=== PATIENT | female | born 1940 | race Caucasian/White ===

== ENCOUNTER 2018-09-01 16:37 | Emergency (ER) | payer MEDICARE, OTHER ==
[~2018-09-01] VITALS: Ht 165.1 cm; Wt 54.4 kg
[2018-09-01 17:15] LABS: BASOPHILS # (AUTO) 0.1 X10'3 (0-0.2); BASOPHILS % (AUTO) 1.8 % (0-1); EOSINOPHILS % (AUTO) 0.3 % (0-6); HEMOGLOBIN 12.6 g/dl (12.0-16.0); LYMPHOCYTES # (AUTO) 0.7 X10'3 (1.1-4.8); LYMPHOCYTES % (AUTO) 10.6 % (21-51); MEAN CORPUSCULAR HEMOGLOBIN 36.4 PG (27.0-31.0); MEAN PLATELET VOLUME 7.8 FL (7.4-10.4); MONOCYTES # (AUTO) 0.7 X10'3 (0-0.9); MONOCYTES % (AUTO) 10.4 % (2-12); NEUTROPHILS # (AUTO) 5.4 X10'3 (1.8-7.7); NEUTROPHILS % (AUTO) 76.9 % (42-75); PLATELET COUNT 316 X10'3 (140-440); RED BLOOD COUNT 3.46 X10'6 (4.20-5.60); RED CELL DISTRIBUTION WIDTH 11.8 % (11.5-14.5); WHITE BLOOD COUNT 6.9 X10'3 (4.5-11.0)
[2018-09-01 17:22] LABS: ALANINE AMINOTRANSFERASE 42 U/L (12-78); ALBUMIN 3.5 G/DL (3.4-5.0); ALBUMIN/GLOBULIN RATIO 0.9 (1.1-1.5); ALKALINE PHOSPHATASE 81 IU/L (46-116); ANION GAP 12 (8-16); ASPARTATE AMINO TRANSFERASE 74 U/L (10-37); BILIRUBIN,TOTAL 0.7 MG/DL (0.1-1.0); BLOOD UREA NITROGEN 22 MG/DL (7-18); BUN/CREATININE RATIO 11.3 (6.6-38.0); CALCIUM 7.6 MG/DL (8.5-10.1); CHLORIDE 93 MMOL/L (99-107); CREATININE 1.94 MG/DL (0.40-0.90); GLUCOSE 162 MG/DL (70-104); POTASSIUM 3.5 MMOL/L (3.5-5.1); SODIUM 127 MMOL/L (135-145); TOTAL CARBON DIOXIDE 21.7 MMOL/L (24-32); TOTAL PROTEIN 7.3 G/DL (6.4-8.2); eGFR 25 ML/MIN
[2018-09-01 17:25] LABS: INR 1.1 INR; PROTHROMBIN TIME 11.1 SECONDS (9.0-12.0)
[2018-09-01 18:26] LABS: COLOR,URINE YELLOW (Yellow); GLUCOSE, URINE NEGATIVE (Neg); KETONES,URINE NEGATIVE (Neg); LEUKOCYTE ESTERASE ,URINE SMALL (Neg); NITRITES, URINE NEGATIVE (Neg); OCCULT BLOOD,URINE LARGE (Neg); PROTEIN,URINE NEGATIVE (Neg); UROBILINOGEN,URINE 0.2 E.U/dL (0.2-1.0)
[2018-09-01 18:32] LABS: UA COLLECTION TYPE CLN CATCH MIDSTREAM
[2018-09-01 18:33] LABS: BACTERIA,URINE FEW /HPF (Neg); CLARITY,URINE SLIGHTLY CLOUDY (Clear); SQUAMOUS EPITHELIAL CELL,UR MODERATE /LPF (FEW); WBC,URINE 0-4 /HPF (0-4)
[2018-09-01] MEDS ORDERED: NITR-79 PO (19:15)
[2018-09-01 19:40] VITALS: BP 170/90
== END 2018-09-01 19:45 | disposition home or self-care (01) ==
LOC: ER 16:38
DX: N39.0 Urinary tract infection, site not specified (principal); M10.9 Gout, unspecified; Z88.8 Allergy status to other drugs, medicaments and biological substances
CPT/HCPCS: 36415; 80053; 81001; 85025; 85610; 87088; 93005; 99285

== ENCOUNTER 2018-10-29 19:31 | Inpatient (IN) | payer MEDICARE, BC ==
[~2018-10-29] VITALS: Ht 165.1 cm; Wt 62.7 kg
[~2018-10-29 19:31] MED LIST: NITR-79 PO
[2018-10-29] MEDS ORDERED: ondansetron 4 MG/5 ML oral solution 5ml CUP PO ONE (20:55)
[2018-10-29] MEDS ORDERED: normal saline 1000ML IV soln IVB ONE (20:55)
[2018-10-29 21:55] LABS: BASOPHILS % (AUTO) 0.4 % (0-1); EOSINOPHILS % (AUTO) 0 % (0-6); HEMOGLOBIN 10.6 g/dl (12.0-16.0); LYMPHOCYTES # (AUTO) 1.1 X10'3 (1.1-4.8); LYMPHOCYTES % (AUTO) 11.7 % (21-51); MEAN CORPUSCULAR HEMOGLOBIN 33.7 PG (27.0-31.0); MEAN CORPUSCULAR HGB CONC 33.2 % (33.0-36.5); MEAN CORPUSCULAR VOLUME 101.5 FL (78-98); MEAN PLATELET VOLUME 7.7 FL (7.4-10.4); MONOCYTES # (AUTO) 0.7 X10'3 (0-0.9); MONOCYTES % (AUTO) 7.1 % (2-12); NEUTROPHILS # (AUTO) 7.9 X10'3 (1.8-7.7); NEUTROPHILS % (AUTO) 80.8 % (42-75); PLATELET COUNT 198 X10'3 (140-440); RED BLOOD COUNT 3.16 X10'6 (4.20-5.60); RED CELL DISTRIBUTION WIDTH 14.2 % (11.5-14.5); WHITE BLOOD COUNT 9.7 X10'3 (4.5-11.0)
[2018-10-29 22:07] LABS: CLARITY,URINE CLEAR (Clear); COLOR,URINE YELLOW (Yellow); GLUCOSE, URINE NEGATIVE (Neg); KETONES,URINE NEGATIVE (Neg); LEUKOCYTE ESTERASE ,URINE NEGATIVE (Neg); NITRITES, URINE NEGATIVE (Neg); OCCULT BLOOD,URINE NEGATIVE (Neg); PROTEIN,URINE NEGATIVE (Neg); UROBILINOGEN,URINE 0.2 E.U/dL (0.2-1.0)
[2018-10-29 22:15] LABS: ALANINE AMINOTRANSFERASE 27 U/L (12-78); ALBUMIN 3.2 G/DL (3.4-5.0); ALKALINE PHOSPHATASE 103 IU/L (46-116); ANION GAP 8 (8-16); ASPARTATE AMINO TRANSFERASE 41 U/L (10-37); BILIRUBIN,TOTAL 1.1 MG/DL (0.1-1.0); BLOOD UREA NITROGEN 21 MG/DL (7-18); BUN/CREATININE RATIO 10.8 (6.6-38.0); CHLORIDE 98 MMOL/L (99-107); CREATININE 1.95 MG/DL (0.40-0.90); GLUCOSE 101 MG/DL (70-104); POTASSIUM 3.9 MMOL/L (3.5-5.1); SODIUM 135 MMOL/L (135-145); TOTAL CARBON DIOXIDE 28.6 MMOL/L (24-32); TOTAL PROTEIN 6.4 G/DL (6.4-8.2); eGFR 25 ML/MIN
[2018-10-29] MEDS ORDERED: ondansetron/PF 4mg/2ml inj IV ONE (22:25)
[2018-10-29 22:26] LABS: CREATINE KINASE 321 U/L (26-192); MAGNESIUM 1.6 MG/DL (1.5-2.4)
[2018-10-29 22:28] LABS: INR 1.1 INR; PARTIAL THROMBOPLASTIN TIME 29 SECONDS (22-32); PROTHROMBIN TIME 10.7 SECONDS (9.0-12.0)
[2018-10-29 22:30] LABS: UA COLLECTION TYPE VOIDED
[2018-10-29] MEDS ORDERED: TRAM50TA2 PO (23:13)
[2018-10-29] MEDS ORDERED: ROPI0.2540 PO (23:13)
[2018-10-29] MEDS ORDERED: POTA10TA15 PO (23:13)
[2018-10-29] MEDS ORDERED: FEBU40TA PO (23:13)
[2018-10-29] MEDS ORDERED: COLC0.6T69 PO (23:13)
[2018-10-30] MEDS ORDERED: bisacodyl 10mg suppository rectal RC PRN (00:15)
[2018-10-30] MEDS ORDERED: acetaminophen 650mg rectal suppository RC PRN (00:15)
[2018-10-30] MEDS ORDERED: ondansetron/PF 4mg/2ml inj IV PRN (00:15)
[2018-10-30] MEDS ORDERED: magnesium hydroxide 30ml (MOM) UD suspension PO PRN (00:15)
[2018-10-30] MEDS ORDERED: HYDROmorphone 1 mg/ml syringe IV PRN (00:15)
[2018-10-30] MEDS ORDERED: mag hydrox/Alum hydrox/simeth 30ml oral suspension PO PRN (00:15)
[2018-10-30] MEDS ORDERED: metoclopramide 5 mg/ml inj IV PRN (00:15)
[2018-10-30] MEDS ORDERED: diphenhydrAMINE 25mg capsule PO PRN (00:15)
[2018-10-30] MEDS ORDERED: acetaminophen 325mg tablet PO PRN (00:15)
[2018-10-30] MEDS ORDERED: morphine 2 MG/ML inj. syringe IV PRN (00:15)
[2018-10-30] MEDS ORDERED: HYDROcodone/acetaminophen 5mg/325mg tablet PO PRN (00:15)
[2018-10-30] MEDS ORDERED: diphenhydrAMINE 50 mg/ml inj IV PRN (00:15)
[2018-10-30] MEDS: normal saline 1000ml 1,000 ML IV SCH ×3 (01:14→20:15)
[2018-10-30] MEDS: traMADol 50MG tablet PO PRN ×2 (01:30→20:37)
[2018-10-30 05:45] LABS: HEMOGLOBIN A1C 5.7 % (4.5-6.2)
[2018-10-30] MEDS ORDERED: colchicine 0.6mg tablet PO PRN (08:00)
[2018-10-30] MEDS: Febuxostat (Uloric) 40MG TAB PO SCH (08:00)
[2018-10-30 10:06] LABS: LIPASE 64 U/L (73-393)
[2018-10-30] MEDS: docusate sod 100mg capsule PO SCH ×2 (11:24→20:28)
[2018-10-30 11:30] VITALS: BP 125/47
[2018-10-30 20:00] VITALS: BP 127/63
[2018-10-30] MEDS: ROPINIRole 0.25mg tablet PO SCH (20:27)
[2018-10-30] MEDS: thiamine 100mg tablet PO SCH (20:27)
[2018-10-30] MEDS: famotidine 20mg tablet PO SCH (20:27)
[2018-10-30] MEDS ORDERED: temazepam 15mg capsule PO PRN (21:00)
[2018-10-31] VITALS: BP 121/80
[2018-10-31] MEDS: normal saline 1000ml 1,000 ML IV SCH ×3 (00:11→23:26)
[2018-10-31 06:03] LABS: BASOPHILS % (AUTO) 0 % (0-1); EOSINOPHILS # (AUTO) 0.1 X10'3 (0-0.9); EOSINOPHILS % (AUTO) 0.9 % (0-6); HEMATOCRIT 31.8 % (35.0-45.0); HEMOGLOBIN 10.6 g/dl (12.0-16.0); LYMPHOCYTES # (AUTO) 0.7 X10'3 (1.1-4.8); LYMPHOCYTES % (AUTO) 6.9 % (21-51); MEAN CORPUSCULAR HGB CONC 33.3 % (33.0-36.5); MEAN CORPUSCULAR VOLUME 102.2 FL (78-98); MEAN PLATELET VOLUME 8.1 FL (7.4-10.4); MONOCYTES # (AUTO) 0.7 X10'3 (0-0.9); MONOCYTES % (AUTO) 6.9 % (2-12); NEUTROPHILS # (AUTO) 8.8 X10'3 (1.8-7.7); NEUTROPHILS % (AUTO) 85.3 % (42-75); PLATELET COUNT 167 X10'3 (140-440); RED BLOOD COUNT 3.12 X10'6 (4.20-5.60); RED CELL DISTRIBUTION WIDTH 13.9 % (11.5-14.5); WHITE BLOOD COUNT 10.4 X10'3 (4.5-11.0)
[2018-10-31 06:09] LABS: ALANINE AMINOTRANSFERASE 33 U/L (12-78); ALBUMIN/GLOBULIN RATIO 0.9 (1.1-1.5); ALKALINE PHOSPHATASE 107 IU/L (46-116); ANION GAP 10 (8-16); ASPARTATE AMINO TRANSFERASE 59 U/L (10-37); BILIRUBIN,TOTAL 1.2 MG/DL (0.1-1.0); BLOOD UREA NITROGEN 29 MG/DL (7-18); CALCIUM 7.7 MG/DL (8.5-10.1); CHLORIDE 103 MMOL/L (99-107); CHOL/HDL RATIO 2.1 (0.00-4.99); CHOLESTEROL 161 MG/DL (0-200); CREATININE 1.93 MG/DL (0.40-0.90); GLUCOSE 133 MG/DL (70-104); HDL CHOLESTEROL 78 MG/DL (35-60); LDL CHOLESTEROL 77 MG/DL (50-100); POTASSIUM 3.9 MMOL/L (3.5-5.1); SODIUM 138 MMOL/L (135-145); TOTAL CARBON DIOXIDE 24.7 MMOL/L (24-32); TOTAL PROTEIN 6.2 G/DL (6.4-8.2); TRIGLYCERIDES 43 MG/DL (20-135); eGFR 25 ML/MIN
[2018-10-31 07:24] VITALS: BP 130/71
[2018-10-31] MEDS: Febuxostat (Uloric) 40MG TAB PO SCH (08:00)
[2018-10-31] MEDS: folic acid 1mg tablet PO SCH (08:04)
[2018-10-31] MEDS: thiamine 100mg tablet PO SCH ×2 (08:04→19:24)
[2018-10-31] MEDS: docusate sod 100mg capsule PO SCH ×2 (08:04→19:24)
[2018-10-31 11:30] VITALS: BP 115/61
[2018-10-31 11:38] LABS: CREATINE KINASE 322 U/L (26-192)
[2018-10-31 13:54] LABS: OCCULT BLOOD STOOL POSITIVE (Neg)
[2018-10-31] MEDS ORDERED: potassium Cl 20 mEq SR tablet PO PRN ×2 (18:55)
[2018-10-31] MEDS ORDERED: magnesium 4gm in 100ml NS 100 ML IV PRN (18:55)
[2018-10-31] MEDS ORDERED: magnesium Cl slow-release 64mg tablet PO PRN (18:55)
[2018-10-31] MEDS ORDERED: potassium Cl 40MEQ/NS 500ml 500 ML IV PRN ×2 (18:55)
[2018-10-31] MEDS ORDERED: PEG 3350/Na sulf,bicarb,Cl/KCl oral sol 4 liter bottle PO ONE (19:00)
[2018-10-31] MEDS ORDERED: meclizine 12.5mg tablet PO PRN (19:05)
[2018-10-31] MEDS: acyclovir 200 MG capsule PO SCH ×2 (19:24→23:23)
[2018-10-31] MEDS: acetaminophen 325mg tablet PO PRN (19:24)
[2018-10-31 20:00] VITALS: BP 121/62
[2018-10-31] MEDS: ROPINIRole 0.25mg tablet PO SCH (21:40)
[2018-10-31] MEDS: famotidine 20mg tablet PO SCH (21:41)
[2018-11-01] VITALS (9 sets, daily range): BP systolic 108–156; BP diastolic 53–96
[2018-11-01] MEDS: acetaminophen 325mg tablet PO PRN (02:07)
[2018-11-01 05:41] LABS: ALANINE AMINOTRANSFERASE 38 U/L (12-78); ALBUMIN 2.6 G/DL (3.4-5.0); ALBUMIN/GLOBULIN RATIO 0.9 (1.1-1.5); ALKALINE PHOSPHATASE 95 IU/L (46-116); ANION GAP 12 (8-16); ASPARTATE AMINO TRANSFERASE 63 U/L (10-37); BILIRUBIN,TOTAL 0.9 MG/DL (0.1-1.0); BLOOD UREA NITROGEN 25 MG/DL (7-18); BUN/CREATININE RATIO 16.7 (6.6-38.0); CALCIUM 7.3 MG/DL (8.5-10.1); CHLORIDE 108 MMOL/L (99-107); GLUCOSE 98 MG/DL (70-104); MAGNESIUM 1.8 MG/DL (1.5-2.4); PHOSPHORUS 2.4 MG/DL (2.3-4.5); POTASSIUM 3.4 MMOL/L (3.5-5.1); SODIUM 143 MMOL/L (135-145); TOTAL CARBON DIOXIDE 22.6 MMOL/L (24-32); TOTAL PROTEIN 5.6 G/DL (6.4-8.2); eGFR 34 ML/MIN
[2018-11-01 05:44] LABS: HEMATOCRIT 27.9 % (35.0-45.0); HEMOGLOBIN 9.8 g/dl (12.0-16.0); RED BLOOD COUNT 2.74 X10'6 (4.20-5.60)
[2018-11-01 05:45] LABS: BASOPHILS % (AUTO) 0.1 % (0-1); EOSINOPHILS % (AUTO) 0.1 % (0-6); LYMPHOCYTES # (AUTO) 1.5 X10'3 (1.1-4.8); LYMPHOCYTES % (AUTO) 15.1 % (21-51); MEAN CORPUSCULAR HEMOGLOBIN 35.7 PG (27.0-31.0); MEAN CORPUSCULAR HGB CONC 35.1 % (33.0-36.5); MEAN CORPUSCULAR VOLUME 101.7 FL (78-98); MEAN PLATELET VOLUME 8.2 FL (7.4-10.4); MONOCYTES # (AUTO) 0.9 X10'3 (0-0.9); MONOCYTES % (AUTO) 8.5 % (2-12); NEUTROPHILS # (AUTO) 7.6 X10'3 (1.8-7.7); NEUTROPHILS % (AUTO) 76.2 % (42-75); PLATELET COUNT 140 X10'3 (140-440); RED CELL DISTRIBUTION WIDTH 14.3 % (11.5-14.5)
[2018-11-01] MEDS: Febuxostat (Uloric) 40MG TAB PO SCH (08:00)
[2018-11-01] MEDS: folic acid 1mg tablet PO SCH (08:15)
[2018-11-01] MEDS: acyclovir 200 MG capsule PO SCH ×5 (08:15→22:08)
[2018-11-01] MEDS: docusate sod 100mg capsule PO SCH ×2 (08:15→20:00)
[2018-11-01] MEDS: thiamine 100mg tablet PO SCH ×2 (08:15→20:00)
[2018-11-01 09:23] LABS: ANISOCYTOSIS 1+; PLATELET ESTIMATE DECREASED
[2018-11-01] MEDS ORDERED: magnesium 2GM in 50ml NS 50 ML IV PRN (11:35)
[2018-11-01] MEDS ORDERED: magnesium Cl slow-release 64mg tablet PO PRN (11:35)
[2018-11-01] MEDS ORDERED: potassium Cl 20 mEq SR tablet PO PRN (11:35)
[2018-11-01] MEDS ORDERED: potassium Cl 40MEQ/NS 500ml 500 ML IV PRN ×2 (11:35)
[2018-11-01] MEDS ORDERED: magnesium 4gm in 100ml NS 100 ML IV PRN (11:35)
[2018-11-01] MEDS: potassium Cl 20 mEq SR tablet PO PRN ×2 (11:40→16:24)
[2018-11-01] MEDS: normal saline 1000ml 1,000 ML IV SCH ×2 (12:15→18:53)
[2018-11-01] MEDS ORDERED: fentaNYL/PF 50MCG/1 ML 2ML syringe ONE ×2 (16:56→20:59)
[2018-11-01] MEDS ORDERED: MIDAZolam 5mg/5ml vial ONE (16:56)
[2018-11-01] MEDS ORDERED: LIDOcaine Viscous 15ml cup ONE (16:56)
[2018-11-01] MEDS: carVEDilol 12.5mg tablet PO SCH (20:00)
[2018-11-01] MEDS: famotidine 20mg tablet PO SCH (21:00)
[2018-11-01] MEDS: ROPINIRole 0.25mg tablet PO SCH (21:00)
[2018-11-02] VITALS: BP 137/67
[2018-11-02 06:02] LABS: ALANINE AMINOTRANSFERASE 35 U/L (12-78); ALBUMIN 2.8 G/DL (3.4-5.0); ALBUMIN/GLOBULIN RATIO 0.9 (1.1-1.5); ALKALINE PHOSPHATASE 83 IU/L (46-116); ANION GAP 15 (8-16); ASPARTATE AMINO TRANSFERASE 56 U/L (10-37); BILIRUBIN,TOTAL 0.7 MG/DL (0.1-1.0); BLOOD UREA NITROGEN 18 MG/DL (7-18); BUN/CREATININE RATIO 15.7 (6.6-38.0); CHLORIDE 110 MMOL/L (99-107); CREATININE 1.15 MG/DL (0.40-0.90); GLUCOSE 70 MG/DL (70-104); MAGNESIUM 1.7 MG/DL (1.5-2.4); PHOSPHORUS 2.2 MG/DL (2.3-4.5); POTASSIUM 3.8 MMOL/L (3.5-5.1); SODIUM 144 MMOL/L (135-145); TOTAL CARBON DIOXIDE 19.2 MMOL/L (24-32); TOTAL PROTEIN 5.8 G/DL (6.4-8.2); eGFR 46 ML/MIN
[2018-11-02 06:20] LABS: RPR Non Reactive (Non Reactive)
[2018-11-02 07:00] VITALS: BP 142/69
[2018-11-02] MEDS: acyclovir 200 MG capsule PO SCH ×5 (07:12→23:12)
[2018-11-02] MEDS: thiamine 100mg tablet PO SCH ×2 (07:12→19:20)
[2018-11-02] MEDS: carVEDilol 12.5mg tablet PO SCH ×2 (07:12→19:19)
[2018-11-02] MEDS: folic acid 1mg tablet PO SCH (07:12)
[2018-11-02] MEDS: normal saline 1000ml 1,000 ML IV SCH ×2 (07:21→16:45)
[2018-11-02] MEDS: Febuxostat (Uloric) 40MG TAB PO SCH (08:00)
[2018-11-02] MEDS: docusate sod 100mg capsule PO SCH ×2 (08:00→19:19)
[2018-11-02 09:50] LABS: BASOPHILS % (AUTO) 0 % (0-1); EOSINOPHILS # (AUTO) 0.1 X10'3 (0-0.9); EOSINOPHILS % (AUTO) 0.8 % (0-6); HEMATOCRIT 28.4 % (35.0-45.0); HEMOGLOBIN 9.3 g/dl (12.0-16.0); LYMPHOCYTES % (AUTO) 10.6 % (21-51); MEAN CORPUSCULAR HGB CONC 32.7 % (33.0-36.5); MONOCYTES # (AUTO) 0.6 X10'3 (0-0.9); MONOCYTES % (AUTO) 5.8 % (2-12); NEUTROPHILS # (AUTO) 8.1 X10'3 (1.8-7.7); NEUTROPHILS % (AUTO) 82.8 % (42-75); RED BLOOD COUNT 2.74 X10'6 (4.20-5.60); RED CELL DISTRIBUTION WIDTH 15.4 % (11.5-14.5); WHITE BLOOD COUNT 9.8 X10'3 (4.5-11.0)
[2018-11-02 09:51] LABS: MEAN PLATELET VOLUME 7.1 FL (7.4-10.4); PLATELET COUNT 155 X10'3 (140-440)
[2018-11-02 12:05] VITALS: BP 111/63
[2018-11-02 18:00] VITALS: BP 137/76
[2018-11-02] MEDS: ROPINIRole 0.25mg tablet PO SCH (19:19)
[2018-11-02] MEDS: famotidine 20mg tablet PO SCH (19:20)
[2018-11-02] MEDS: traMADol 50MG tablet PO PRN (19:20)
[2018-11-03] VITALS (23 sets, daily range): BP systolic 122–163; BP diastolic 64–91
[2018-11-03] MEDS: traMADol 50MG tablet PO PRN (03:22)
[2018-11-03 05:33] LABS: BASOPHILS % (AUTO) 0.1 % (0-1); EOSINOPHILS % (AUTO) 0.1 % (0-6); HEMATOCRIT 25.8 % (35.0-45.0); HEMOGLOBIN 8.5 g/dl (12.0-16.0); LYMPHOCYTES # (AUTO) 1.5 X10'3 (1.1-4.8); LYMPHOCYTES % (AUTO) 21.7 % (21-51); MEAN CORPUSCULAR HEMOGLOBIN 34.3 PG (27.0-31.0); MEAN CORPUSCULAR VOLUME 103.7 FL (78-98); MEAN PLATELET VOLUME 7.8 FL (7.4-10.4); MONOCYTES # (AUTO) 0.6 X10'3 (0-0.9); MONOCYTES % (AUTO) 8.3 % (2-12); NEUTROPHILS # (AUTO) 4.7 X10'3 (1.8-7.7); NEUTROPHILS % (AUTO) 69.8 % (42-75); PLATELET COUNT 140 X10'3 (140-440); RED BLOOD COUNT 2.49 X10'6 (4.20-5.60); RED CELL DISTRIBUTION WIDTH 16.5 % (11.5-14.5); WHITE BLOOD COUNT 6.7 X10'3 (4.5-11.0)
[2018-11-03 05:48] LABS: ALANINE AMINOTRANSFERASE 28 U/L (12-78); ALBUMIN 2.4 G/DL (3.4-5.0); ALBUMIN/GLOBULIN RATIO 0.8 (1.1-1.5); ALKALINE PHOSPHATASE 87 IU/L (46-116); ANION GAP 12 (8-16); ASPARTATE AMINO TRANSFERASE 41 U/L (10-37); BILIRUBIN,TOTAL 0.7 MG/DL (0.1-1.0); BLOOD UREA NITROGEN 20 MG/DL (7-18); BUN/CREATININE RATIO 15.7 (6.6-38.0); CHLORIDE 111 MMOL/L (99-107); CREATININE 1.27 MG/DL (0.40-0.90); GLUCOSE 90 MG/DL (70-104); MAGNESIUM 1.6 MG/DL (1.5-2.4); PHOSPHORUS 2.5 MG/DL (2.3-4.5); POTASSIUM 3.8 MMOL/L (3.5-5.1); SODIUM 142 MMOL/L (135-145); TOTAL CARBON DIOXIDE 19.2 MMOL/L (24-32); TOTAL PROTEIN 5.3 G/DL (6.4-8.2); eGFR 41 ML/MIN
[2018-11-03] MEDS: Febuxostat (Uloric) 40MG TAB PO SCH (08:00)
[2018-11-03] MEDS: folic acid 1mg tablet PO SCH (08:39)
[2018-11-03] MEDS: thiamine 100mg tablet PO SCH (08:39)
[2018-11-03] MEDS: carVEDilol 12.5mg tablet PO SCH (08:39)
[2018-11-03] MEDS: docusate sod 100mg capsule PO SCH (08:39)
[2018-11-03] MEDS: acyclovir 200 MG capsule PO SCH ×3 (08:39→14:28)
[2018-11-03 10:53] LABS: URINE AMPHETAMINE SCREEN NEGATIVE (Neg); URINE BARBITUATE SCREEN NEGATIVE (Neg); URINE BENZODIAZEPINES SCREEN POSITIVE (Neg); URINE CANNABINOID SCREEN NEGATIVE (Neg); URINE COCAINE SCREEN NEGATIVE (Neg); URINE METHADONE SCREEN NEGATIVE (Neg); URINE OPIATE SCREEN NEGATIVE (Neg); URINE PHENCYCLIDINE SCREEN NEGATIVE (Neg)
[2018-11-03] MEDS ORDERED: FOLI1TAB16 PO (12:11)
[2018-11-03] MEDS ORDERED: THI100T PO (12:11)
[2018-11-03] MEDS ORDERED: FAMO20TA8 PO (12:11)
[2018-11-03] MEDS ORDERED: CARV-50 PO (12:11)
[2018-11-03] MEDS ORDERED: MECL12.584 PO (12:11)
[2018-11-03] MEDS ORDERED: ACYC200C PO (12:11)
[2018-11-03] MEDS ORDERED: FERR325T28 PO (15:54)
== END 2018-11-03 15:15 | disposition home health service (06) | DRG 378 ==
LOC: ER 19:32 → ED HOLD 10-30 00:15 → SUR 3N 10-30 10:30
PROVIDERS: ADMIT Family Medicine; ATTEND Family Medicine
PROC: 0D748ZZ Dilation of Esophagogastric Junction, Via Natural or Artificial Opening Endoscopic (ICD-10-PCS; 2018-11-01)
PROC: 0DBM8ZX Excision of Descending Colon, Via Natural or Artificial Opening Endoscopic, Diagnostic (ICD-10-PCS; 2018-11-01)
PROC: 4A02XFZ Measurement of Cardiac Rhythm, External Approach (ICD-10-PCS; principal; 2018-11-03)
PROC: 4A03XB1 Measurement of Arterial Pressure, Peripheral, External Approach (ICD-10-PCS; 2018-11-03)
DX: K92.2 Gastrointestinal hemorrhage, unspecified (principal); N17.9 Acute kidney failure, unspecified; K63.3 Ulcer of intestine; K55.9 Vascular disorder of intestine, unspecified; M47.812 Spondylosis without myelopathy or radiculopathy, cervical region; E86.1 Hypovolemia; N18.3 Chronic kidney disease, stage 3 (moderate); B02.9 Zoster without complications; D50.0 Iron deficiency anemia secondary to blood loss (chronic); E86.0 Dehydration; E87.6 Hypokalemia; H81.10 Benign paroxysmal vertigo, unspecified ear; I12.9 Hypertensive chronic kidney disease with stage 1 through stage 4 chronic kidney disease, or unspecified chronic kidney disease; D63.8 Anemia in other chronic diseases classified elsewhere; Z60.2 Problems related to living alone; R13.14 Dysphagia, pharyngoesophageal phase; W18.30XA Fall on same level, unspecified, initial encounter; K22.2 Esophageal obstruction; L30.9 Dermatitis, unspecified; M1A.9XX0 Chronic gout, unspecified, without tophus (tophi); M48.04 Spinal stenosis, thoracic region; M50.323 Other cervical disc degeneration at C6-C7 level; R29.6 Repeated falls; G89.29 Other chronic pain; Z88.8 Allergy status to other drugs, medicaments and biological substances; Z79.899 Other long term (current) drug therapy; Y93.89 Activity, other specified; Y92.89 Other specified places as the place of occurrence of the external cause; Y99.8 Other external cause status
CPT/HCPCS: 36415; 45380; 70450; 70551; 71045; 72070; 72141; 80053; 80061; 80305; 80320; 81003; 82140; 82272; 82550; 82607; 83036; 83690; 83735; 83880; 84100; 84443; 84484; 85025; 85610; 85730; 86592; 87070; 88305; 93005; 93306; 93660; 93880; 96374; 99152; 99153; 99285; A4620; G0378; J2250; J2270; J2405; J3010; J7030; Q0163

== ENCOUNTER 2019-09-19 16:35 | Emergency (ER) | payer MEDICARE, BC ==
[~2019-09-19] VITALS: Ht 160 cm; Wt 56.4 kg
[~2019-09-19 16:35] MED LIST changes: +ACYC200C PO; +CARV-50 PO; +COLC0.6T69 PO; +FAMO20TA8 PO; +FEBU40TA PO; +FOLI1TAB16 PO; +LIDOcaine 1% W/epiNEPHrine 1:100,000 20ml vial ONE; +MECL12.584 PO; -NITR-79 PO; +POTA10TA15 PO; +ROPI0.2540 PO; +THI100T PO; +TRAM50TA2 PO
[2019-09-19] MEDS ORDERED: normal saline 1000ML IV soln IVB ONE (16:50)
[2019-09-19 17:23] LABS: BASOPHILS % (AUTO) 0.4 % (0-1); EOSINOPHILS % (AUTO) 0.6 % (0-6); HEMATOCRIT 30.1 % (35.0-45.0); HEMOGLOBIN 9.9 g/dl (12.0-16.0); LYMPHOCYTES # (AUTO) 0.7 X10'3 (1.1-4.8); MEAN CORPUSCULAR HEMOGLOBIN 33.7 PG (27.0-31.0); MEAN CORPUSCULAR VOLUME 102.2 FL (78-98); MEAN PLATELET VOLUME 7.4 FL (7.4-10.4); MONOCYTES # (AUTO) 0.5 X10'3 (0-0.9); MONOCYTES % (AUTO) 9.8 % (2-12); NEUTROPHILS # (AUTO) 3.9 X10'3 (1.8-7.7); NEUTROPHILS % (AUTO) 76.2 % (42-75); PLATELET COUNT 131 X10'3 (140-440); RED BLOOD COUNT 2.95 X10'6 (4.20-5.60); RED CELL DISTRIBUTION WIDTH 15.1 % (11.5-14.5); WHITE BLOOD COUNT 5.1 X10'3 (4.5-11.0)
[2019-09-19 17:31] LABS: ALANINE AMINOTRANSFERASE 12 U/L (12-78); ALBUMIN 3.4 G/DL (3.4-5.0); ALBUMIN/GLOBULIN RATIO 1.1 (1.1-1.5); ALKALINE PHOSPHATASE 38 IU/L (46-116); ANION GAP 19 (8-16); ASPARTATE AMINO TRANSFERASE 20 U/L (10-37); BILIRUBIN,TOTAL 0.2 MG/DL (0.1-1.0); BLOOD UREA NITROGEN 34 MG/DL (7-18); BUN/CREATININE RATIO 18.1 (6.6-38.0); CHLORIDE 111 MMOL/L (99-107); CREATININE 1.88 MG/DL (0.40-0.90); ETHANOL < 0.010 GM/DL (0.0-0.010); GLUCOSE 132 MG/DL (70-104); SODIUM 140 MMOL/L (135-145); TOTAL PROTEIN 6.4 G/DL (6.4-8.2); eGFR 26 ML/MIN
[2019-09-19 17:34] LABS: TOTAL CARBON DIOXIDE 10.5 MMOL/L (24-32)
[2019-09-19] MEDS ORDERED: potassium Cl 20 mEq SR tablet PO STA (17:41)
[2019-09-19 18:31] VITALS: BP 154/65
== END 2019-09-19 18:33 | disposition home or self-care (01) ==
LOC: ER 16:35
DX: S01.01XA Laceration without foreign body of scalp, initial encounter (principal); E86.0 Dehydration; R42 Dizziness and giddiness; G89.29 Other chronic pain; Z98.890 Other specified postprocedural states; Z88.8 Allergy status to other drugs, medicaments and biological substances; Z88.1 Allergy status to other antibiotic agents; Z79.899 Other long term (current) drug therapy; W18.39XA Other fall on same level, initial encounter; Y93.89 Activity, other specified; Y92.89 Other specified places as the place of occurrence of the external cause; Y99.8 Other external cause status
CPT/HCPCS: 12001; 36415; 70450; 80053; 80320; 85025; 93005; 96360; 99284; J7030

== ENCOUNTER 2020-06-04 08:03 | Inpatient (IN) | payer MEDICARE, BC ==
[~2020-06-04] VITALS: Ht 157.5 cm; Wt 66.8 kg
[~2020-06-04 08:03] MED LIST changes: -ACYC200C PO; -CARV-50 PO; -COLC0.6T69 PO; -FAMO20TA8 PO; -FEBU40TA PO; -FOLI1TAB16 PO; -LIDOcaine 1% W/epiNEPHrine 1:100,000 20ml vial ONE; -MECL12.584 PO; -POTA10TA15 PO; -ROPI0.2540 PO; +SERT100T10 PO; -THI100T PO; +TRAZ-251 PO
[2020-06-04 09:23] LABS: BASOPHILS # (AUTO) 0.1 X10'3 (0-0.2); BASOPHILS % (AUTO) 0.4 % (0-1); EOSINOPHILS % (AUTO) 0.1 % (0-6); HEMATOCRIT 24.8 % (35.0-45.0); LYMPHOCYTES # (AUTO) 0.3 X10'3 (1.1-4.8); MEAN CORPUSCULAR HEMOGLOBIN 33.9 PG (27.0-31.0); MEAN CORPUSCULAR HGB CONC 32.2 g/dL (33.0-36.5); MEAN CORPUSCULAR VOLUME 105.5 FL (78-98); MEAN PLATELET VOLUME 7.8 FL (7.4-10.4); MONOCYTES # (AUTO) 0.7 X10'3 (0-0.9); MONOCYTES % (AUTO) 5.3 % (2-12); NEUTROPHILS # (AUTO) 11.4 X10'3 (1.8-7.7); NEUTROPHILS % (AUTO) 92.2 % (42-75); PLATELET COUNT 158 X10'3 (140-440); RED BLOOD COUNT 2.35 X10'6 (4.20-5.60); RED CELL DISTRIBUTION WIDTH 16.7 % (11.5-14.5); WHITE BLOOD COUNT 12.4 X10'3 (4.5-11.0)
[2020-06-04 09:24] LABS: CLARITY,URINE CLEAR (Clear); COLOR,URINE YELLOW (Yellow); GLUCOSE, URINE NEGATIVE (Neg); KETONES,URINE 40 mg/dl (Neg); LEUKOCYTE ESTERASE ,URINE NEGATIVE (Neg); NITRITES, URINE NEGATIVE (Neg); OCCULT BLOOD,URINE SMALL (Neg); PROTEIN,URINE 30 mg/dl (Neg); UA COLLECTION TYPE STRAIGHT CATH; UROBILINOGEN,URINE 0.2 E.U/dL (0.2-1.0)
[2020-06-04 09:28] LABS: PARTIAL THROMBOPLASTIN TIME 30 SECONDS (22-32)
[2020-06-04 09:30] LABS: SQUAMOUS EPITHELIAL CELL,UR MODERATE /LPF (FEW); URINE AMPHETAMINE SCREEN NEGATIVE (Neg); URINE BARBITUATE SCREEN NEGATIVE (Neg); URINE BENZODIAZEPINES SCREEN NEGATIVE (Neg); URINE CANNABINOID SCREEN NEGATIVE (Neg); URINE COCAINE SCREEN NEGATIVE (Neg); URINE METHADONE SCREEN NEGATIVE (Neg); URINE OPIATE SCREEN NEGATIVE (Neg); URINE PHENCYCLIDINE SCREEN NEGATIVE (Neg)
[2020-06-04 09:31] LABS: BACTERIA,URINE FEW /HPF (Neg); RBC,URINE 0-2 /HPF (0-2); WBC,URINE 0-4 /HPF (0-4)
[2020-06-04 09:32] LABS: AMORPHOUS URATES 2+
[2020-06-04 09:34] LABS: ACETAMINOPHEN < 2.0 UG/ML (10-30); ALANINE AMINOTRANSFERASE 32 U/L (12-78); ALBUMIN 2.9 G/DL (3.4-5.0); ALBUMIN/GLOBULIN RATIO 0.9 (1.1-1.5); ALKALINE PHOSPHATASE 76 IU/L (46-116); ANION GAP 18 (8-16); ASPARTATE AMINO TRANSFERASE 60 U/L (10-37); BILIRUBIN,TOTAL 0.8 MG/DL (0.1-1.0); BLOOD UREA NITROGEN 18 MG/DL (7-18); BUN/CREATININE RATIO 10.9 (6.6-38.0); CALCIUM 6.7 MG/DL (8.5-10.1); CHLORIDE 107 MMOL/L (99-107); CREATININE 1.65 MG/DL (0.40-0.90); ETHANOL < 0.010 GM/DL (0.0-0.010); GLUCOSE 96 MG/DL (70-104); POTASSIUM 4.3 MMOL/L (3.5-5.1); SODIUM 140 MMOL/L (135-145); TOTAL CARBON DIOXIDE 15.1 MMOL/L (24-32); TOTAL PROTEIN 6.1 G/DL (6.4-8.2); TROPONIN I 0.09 NG/ML (0.0-0.05); eGFR 30 ML/MIN
[2020-06-04] MEDS ORDERED: diphenhydrAMINE 50 mg/ml inj IV ONE (09:50)
--- NOTE | 2020-06-04 09:58 | NUR ---
Spoke to poison control regarding possible sertaline and tramadol ingestion. Poison control states to monitor pt at least 6 hours, or until pt is back to baseline mentation, watch for SLASH TRIMMER or respiratory depression, seizure activity, or QT prolongation. Repeat ASA level, CMP, and LFT. If LFT rise, treat pt with Magnesium. Otherwise symptomatic, and supportive treatment using benzodiazepine medications as needed.
[2020-06-04] MEDS ORDERED: LORazepam 2 mg/ml vial IV ONE ×3 (10:20→20:25)
[2020-06-04] MEDS ORDERED: dextrose 50%-water 50ml dispensing syringe IV ONE (10:23)
--- NOTE | 2020-06-04 10:24 | NUR ---
Notified of BG 63; who requests administering 1 Amp D50 at this time.
--- NOTE | 2020-06-04 11:13 | NUR ---
2-hour lactic drawn at this time.
[2020-06-04] MEDS ORDERED: metroNIDAZOLE-Flagyl 500mg/NS 100 ML IV STA (12:28)
[2020-06-04] MEDS ORDERED: sodium bicarbonate (8.4%) inj. 150 MEQ in dextrose 5%-water 1,000 ML IV SCH (12:28)
[2020-06-04] MEDS ORDERED: sodium bicarbonate (0.9mEq/ml) 44.6 mEq/50ml syringe IV ONE (12:30)
[2020-06-04] MEDS ORDERED: CefTRIAXone 2gm/D5W 50ml 50 ML IV ONE (12:30)
[2020-06-04] MEDS ORDERED: CefTRIAXone inj 2,000 MG in normal saline 100ml IV soln 100 ML IV ONE (12:46)
[2020-06-04 12:50] LABS: ABG HCO3 12.2 mmol/L (22.0-26.0); ABG OXYGEN SATURATION 97.3 % (94-97); ABG PCO2 (T) 29.6 mmHg (32.0-45.0); ABG PO2 (T) 112.2 mmHg (75.0-100.0); ALLEN'S TEST POSITIVE; FCOHb 0.3 % (0.0-3.9); FLOW 2 L/min; FMetHb 0.1 % (0.0-1.5); FO2Hb 96.9 % (94-97); TOTAL HEMOGLOBIN 7.9 G/dl (12.0-16.0)
[2020-06-04] MEDS ORDERED: CEFD300C17 PO (13:13)
[2020-06-04] MEDS ORDERED: sodium bicarbonate (8.4%) inj. 150 MEQ in sodium chloride 0.45% 850 ML IV SCH (14:06)
[2020-06-04] MEDS ORDERED: metoclopramide 5 mg/ml inj IV PRN (14:10)
[2020-06-04] MEDS ORDERED: ondansetron/PF 4mg/2ml inj IV PRN (14:10)
[2020-06-04] MEDS ORDERED: acetaminophen 650mg rectal suppository RC PRN (14:10)
[2020-06-04] MEDS ORDERED: potassium Cl 20 mEq SR tablet PO PRN ×2 (14:10)
[2020-06-04] MEDS ORDERED: magnesium hydroxide 30ml (MOM) UD suspension PO PRN (14:10)
[2020-06-04] MEDS ORDERED: acetaminophen 325mg tablet PO PRN (14:10)
[2020-06-04] MEDS ORDERED: magnesium Cl slow-release 64mg tablet PO PRN (14:10)
[2020-06-04] MEDS ORDERED: bisacodyl 10mg suppository rectal RC PRN (14:10)
[2020-06-04] MEDS ORDERED: magnesium 4gm in 100ml NS 100 ML IV PRN (14:10)
[2020-06-04] MEDS ORDERED: potassium CL 10mEq/100ml bag 100 ML IV PRN (14:10)
[2020-06-04] MEDS ORDERED: mag hydrox/Alum hydrox/simeth 30ml oral suspension PO PRN (14:10)
[2020-06-04] MEDS ORDERED: magnesium 2GM in 50ml NS 50 ML IV PRN (14:10)
[2020-06-04] MEDS: sodium bicarbonate (8.4%) inj. 150 MEQ in sodium chloride 0.45% 1,000 ML IV SCH (14:31)
[2020-06-04] MEDS: piperacillin/tazo 3.375gm/50ml 50 ML IV SCH (16:00)
[2020-06-04] MEDS: vancomycin/NS 1 GM ADD-VANTAGE 250 ML IV SCH (16:30)
--- NOTE | 2020-06-04 16:52 | NUR ---
PT started thrashing around and fighting staff, unable to reorient the patient. Phoned Dr. Dimas and received a one time dose for Ativan 1 mg IV.
--- NOTE | 2020-06-04 17:08 | NUR ---
Recieved patient report from RECORDS MANAGEMENT MANAGER Rosita, awaiting patient arrival to PCU.
[2020-06-04 17:43] VITALS: BP 120/70
--- NOTE | 2020-06-04 17:43 | NUR ---
Patient arrived to PCU, thrashing around in bed, unable to answer questions, saying "ow, ow, ow" and grabbing at her genital region. VSS. Sitter at bedside. will continue to monitor closely.
--- NOTE | 2020-06-04 17:58 | NUR ---
Patient is agitated and confused, unable to DART
[2020-06-04 18:00] VITALS: BP 105/42
--- NOTE | 2020-06-04 18:30 | NUR ---
Problems reprioritized. Patient report given, questions answered & plan of care reviewed with Alyssa RN. Patient sleeping in bed, VSS. Blood glucose at shift change was 117.
--- NOTE | 2020-06-04 19:56 | NUR ---
PAGER ID: [phone] MESSAGE: [id number] Jennifer Hoyos79 F here for Aletered mental status eating almost 200 pills of tramadol and sertraline at [facility]. Fighting, pulling things out, can I get juan please? Addendum: 06/04/20 at 2226 by Alyssa Rodríguez RN gave one time dose 1mg ativan
[2020-06-04] MEDS: K and/or MAG REPLACEMENT MC SCH (20:00)
[2020-06-04] MEDS ORDERED: LORazepam 2 mg/ml vial IM ONE (20:00)
[2020-06-04] MEDS: lactulose 20gm/30ml cup PO SCH (20:00)
[2020-06-04] MEDS: rifaximin 550mg tablet PO SCH (20:00)
[2020-06-04] MEDS: heparin, porcine 5000 units/ml vial SQ SCH (20:36)
[2020-06-04 22:00] VITALS: BP 125/54
--- NOTE | 2020-06-04 22:03 | NUR ---
PAGER ID: [phone] MESSAGE: [id number] tommy Ortizntosh: NPO and ALOC can i insert NG so she can take PO meds. Thanks -Yi;any [phone] Addendum: 06/04/20 at 2226 by Alyssa Rodríguez RN said to hold the rifamxin and to give the lactulose by enema
--- NOTE | 2020-06-04 22:25 | NUR ---
Sofia golden MD notified PAGER ID: [phone] MESSAGE: [id number] Jennifer Soha: thrashing around in bed restlessly, sofia wore off, can I have a new order before the enema? Addendum: 06/04/20 at 8858 by Alyssa Rodríguez RN said no sofia, but restraints ok.
--- NOTE | 2020-06-04 23:26 | NUR ---
Placed rectal tube to insert lactulose through rectal. Will monitor closely.
--- NOTE | 2020-06-04 23:52 | NUR ---
MD notified for tachycardia MD said to do EKG and bring to her office. PAGER ID: [phone] MESSAGE: [id number] Jennifer Hoyos: Tachycardia 140-150s for 5 mins now and going in and out of AFIB bursts every hour.
--- NOTE | 2020-06-05 00:08 | NUR ---
PAGER ID: [phone] MESSAGE: [id number] Jennifer Hoyos: converted to AFIB HR 130s.unable to do EKG, system machine is down. -Alyssa [phone]
[2020-06-05] MEDS ORDERED: diltiazem 5mg/ml 5ml inj. IV ONE (00:15)
--- NOTE | 2020-06-05 00:17 | NUR ---
Unable to DART. Patient is too agitated and confused, barely speaks at this time.
--- NOTE | 2020-06-05 01:07 | NUR ---
[id number] Jennifer Hoyos: Patient is going to hurt herself in the restraints. constantly trying to garcia her way out and thrashing in bed like kasie. Unable to comprehend during reorienting. what u think about haldol? -Alyssa Addendum: 06/05/20 at 0112 by Alyssa Rodríguez RN said Haldol IM once lowest dose. I put in 2mg IM once
[2020-06-05] MEDS ORDERED: haloperidol lactate 5mg/ml inj IM ONE (01:15)
[2020-06-05 02:00] VITALS: BP 123/64
[2020-06-05] MEDS: lactulose 20gm/30ml cup PO SCH ×4 (02:00→19:36)
[2020-06-05] MEDS: sodium bicarbonate (8.4%) inj. 150 MEQ in sodium chloride 0.45% 1,000 ML IV SCH ×3 (02:01→23:46)
--- NOTE | 2020-06-05 02:51 | NUR ---
MD ordered Echocardiogram to be done AM shift. and Cardizem 5mg IV once
[2020-06-05 06:00] VITALS: BP 133/64
[2020-06-05 06:10] LABS: BASOPHILS % (AUTO) 0.1 % (0-1); EOSINOPHILS % (AUTO) 0.1 % (0-6); HEMATOCRIT 23.1 % (35.0-45.0); HEMOGLOBIN 7.6 g/dl (12.0-16.0); LYMPHOCYTES # (AUTO) 0.3 X10'3 (1.1-4.8); LYMPHOCYTES % (AUTO) 2.9 % (21-51); MEAN CORPUSCULAR HEMOGLOBIN 33.5 PG (27.0-31.0); MEAN CORPUSCULAR HGB CONC 32.8 g/dL (33.0-36.5); MEAN CORPUSCULAR VOLUME 102.4 FL (78-98); MEAN PLATELET VOLUME 8.2 FL (7.4-10.4); MONOCYTES # (AUTO) 0.6 X10'3 (0-0.9); MONOCYTES % (AUTO) 5.5 % (2-12); NEUTROPHILS # (AUTO) 10.3 X10'3 (1.8-7.7); NEUTROPHILS % (AUTO) 91.4 % (42-75); PLATELET COUNT 139 X10'3 (140-440); RED BLOOD COUNT 2.25 X10'6 (4.20-5.60); RED CELL DISTRIBUTION WIDTH 15.7 % (11.5-14.5); WHITE BLOOD COUNT 11.3 X10'3 (4.5-11.0)
[2020-06-05 06:24] LABS: ALANINE AMINOTRANSFERASE 34 U/L (12-78); ALBUMIN 2.6 G/DL (3.4-5.0); ALBUMIN/GLOBULIN RATIO 0.9 (1.1-1.5); ALKALINE PHOSPHATASE 63 IU/L (46-116); ANION GAP 18 (8-16); ASPARTATE AMINO TRANSFERASE 75 U/L (10-37); BILIRUBIN,TOTAL 0.5 MG/DL (0.1-1.0); BLOOD UREA NITROGEN 24 MG/DL (7-18); BUN/CREATININE RATIO 14.2 (6.6-38.0); CALCIUM 6.4 MG/DL (8.5-10.1); CHLORIDE 109 MMOL/L (99-107); CREATININE 1.69 MG/DL (0.40-0.90); GLUCOSE 118 MG/DL (70-104); MAGNESIUM 2.1 MG/DL (1.5-2.4); PHOSPHORUS 2.6 MG/DL (2.3-4.5); POTASSIUM 3.6 MMOL/L (3.5-5.1); SODIUM 145 MMOL/L (135-145); TOTAL CARBON DIOXIDE 17.9 MMOL/L (24-32); TOTAL PROTEIN 5.6 G/DL (6.4-8.2); eGFR 29 ML/MIN
--- NOTE | 2020-06-05 06:40 | NUR ---
Problems reprioritized. Patient report given, questions answered & plan of care reviewed with SERA Grey.
--- NOTE | 2020-06-05 06:46 | NUR ---
Problems reprioritized. Patient report given, questions answered & plan of care reviewed with Maik Davalos.
--- NOTE | 2020-06-05 06:48 | NUR ---
Patient in room PCU 3023. I have received report from Priscila ZAMORA and had the opportunity to ask questions and assume patient care.
[2020-06-05] MEDS: rifaximin 550mg tablet PO SCH ×2 (08:00→19:36)
[2020-06-05] MEDS: K and/or MAG REPLACEMENT MC SCH ×2 (08:00→19:36)
[2020-06-05] MEDS: piperacillin/tazo 3.375gm/50ml 50 ML IV SCH ×4 (08:00→23:46)
[2020-06-05] MEDS: heparin, porcine 5000 units/ml vial SQ SCH ×2 (09:20→19:36)
[2020-06-05 11:00] VITALS: BP 139/68
[2020-06-05] MEDS ORDERED: ipratropium/albuterol 3ml nebule NEB PRN (11:10)
--- NOTE | 2020-06-05 11:39 | NUR ---
PT UNABLE TO PARTICIPATE IN ANY SECRETION REMOVAL PRACTICE'S. PTS ARMS AND LEGS ARE RESTRAINED D/T HER CONFUSION AND AGITATION. HERE FOR METABOLIC ENCEPHALOPATHY SECONDARY TO POSSIBLE MEDICATION OD. PT ON 2LPM WITH AN SPO2 OF 98%. DIM/COARSE BS WITH A MOIST NONPRODUCTIVE COUGH. PT ALSO GROANING AND MOVING AROUND IN BED. NO SIGNS ON SOB OR DISTRESS. Addendum: 06/05/20 at 1143 by Jenelle Mata RT Amended: Links added.
--- NOTE | 2020-06-05 12:25 | NUR ---
Matt Graves completed a swalow eval this afternoon. Stategies for taking oral Xifazan are explored with Speech therapy and also with Pharmacy.
[2020-06-05] MEDS: LORazepam 2 mg/ml vial IV PRN ×3 (12:44→23:43)
[2020-06-05 15:00] VITALS: BP 139/68
[2020-06-05] MEDS ORDERED: ipratropium/albuterol 3ml nebule NEB SCH (15:00)
[2020-06-05] MEDS: vancomycin/NS 1 GM ADD-VANTAGE 250 ML IV SCH (16:36)
[2020-06-05 18:00] VITALS: BP 109/52
[2020-06-05 22:00] VITALS: BP 121/95
[2020-06-06 02:00] VITALS: BP 146/60
[2020-06-06] MEDS: lactulose 20gm/30ml cup PO SCH ×4 (02:06→20:00)
[2020-06-06] MEDS: LORazepam 2 mg/ml vial IV PRN (04:33)
[2020-06-06 06:00] VITALS: BP 140/69
[2020-06-06 06:07] LABS: BASOPHILS % (AUTO) 0.2 % (0-1); EOSINOPHILS % (AUTO) 0 % (0-6); HEMATOCRIT 23.8 % (35.0-45.0); HEMOGLOBIN 7.8 g/dl (12.0-16.0); LYMPHOCYTES # (AUTO) 0.5 X10'3 (1.1-4.8); MEAN CORPUSCULAR HEMOGLOBIN 33.6 PG (27.0-31.0); MEAN CORPUSCULAR HGB CONC 32.8 g/dL (33.0-36.5); MEAN CORPUSCULAR VOLUME 102.5 FL (78-98); MEAN PLATELET VOLUME 8.3 FL (7.4-10.4); MONOCYTES # (AUTO) 0.6 X10'3 (0-0.9); MONOCYTES % (AUTO) 6.5 % (2-12); NEUTROPHILS # (AUTO) 8.5 X10'3 (1.8-7.7); NEUTROPHILS % (AUTO) 88.3 % (42-75); PLATELET COUNT 150 X10'3 (140-440); RED BLOOD COUNT 2.32 X10'6 (4.20-5.60); RED CELL DISTRIBUTION WIDTH 16.4 % (11.5-14.5); WHITE BLOOD COUNT 9.6 X10'3 (4.5-11.0)
--- NOTE | 2020-06-06 06:18 | NUR ---
Problems reprioritized. Patient report given, questions answered & plan of care reviewed with SERA Grey.
[2020-06-06 06:20] LABS: ALANINE AMINOTRANSFERASE 32 U/L (12-78); ALBUMIN 2.4 G/DL (3.4-5.0); ALBUMIN/GLOBULIN RATIO 0.8 (1.1-1.5); ALKALINE PHOSPHATASE 60 IU/L (46-116); ANION GAP 22 (8-16); ASPARTATE AMINO TRANSFERASE 68 U/L (10-37); BILIRUBIN,TOTAL 0.7 MG/DL (0.1-1.0); BLOOD UREA NITROGEN 23 MG/DL (7-18); BUN/CREATININE RATIO 13.5 (6.6-38.0); CALCIUM 6.6 MG/DL (8.5-10.1); CHLORIDE 111 MMOL/L (99-107); CREATININE 1.71 MG/DL (0.40-0.90); GLUCOSE 94 MG/DL (70-104); PHOSPHORUS 2.5 MG/DL (2.3-4.5); SODIUM 153 MMOL/L (135-145); TOTAL PROTEIN 5.6 G/DL (6.4-8.2); eGFR 29 ML/MIN
[2020-06-06 06:22] LABS: POTASSIUM 2.8 MMOL/L (3.5-5.1)
--- NOTE | 2020-06-06 06:47 | NUR ---
Page to Dr. Dimas: PAGER ID: [phone] MESSAGE: [id number] Hoyos Critical low K+ 2.8 will follow K+ replacement protocol. Matilda ZAMORA U [id number]
[2020-06-06] MEDS: potassium CL 10mEq/100ml bag 100 ML IV PRN ×2 (07:15→13:27)
[2020-06-06] MEDS: piperacillin/tazo 3.375gm/50ml 50 ML IV SCH ×3 (07:35→23:36)
[2020-06-06] MEDS: heparin, porcine 5000 units/ml vial SQ SCH ×2 (07:46→19:55)
[2020-06-06] MEDS: rifaximin 550mg tablet PO SCH (08:00)
[2020-06-06] MEDS: K and/or MAG REPLACEMENT MC SCH ×2 (08:00→20:00)
[2020-06-06 11:00] VITALS: BP 154/61
[2020-06-06] MEDS: sodium bicarbonate (8.4%) inj. 150 MEQ in sodium chloride 0.45% 1,000 ML IV SCH (13:26)
--- NOTE | 2020-06-06 13:40 | NUR ---
Polst is in paper chart Limited Code No Compressions, No Cardioversion, No Intubation
[2020-06-06 15:00] VITALS: BP 140/69
[2020-06-06] MEDS ORDERED: methylPREDNISolone sod succ 125mg/2ml vial IV ONE (16:35)
[2020-06-06 16:56] LABS: ABG BASE EXCESS -5.7 mmol/L (-2.0-2.0); ABG HCO3 18.3 mmol/L (22.0-26.0); ABG OXYGEN SATURATION 55.7 % (94-97); ABG PCO2 (T) 30.2 mmHg (32.0-45.0); ABG PO2 (T) 30.6 mmHg (75.0-100.0); ALLEN'S TEST POSITIVE; FCOHb 0.3 % (0.0-3.9); FMetHb 0.1 % (0.0-1.5); FO2Hb 55.5 % (94-97); TOTAL HEMOGLOBIN 8.6 G/dl (12.0-16.0)
--- NOTE | 2020-06-06 17:02 | NUR ---
PAGER ID: [phone] MESSAGE: [id number] MCINTOSH. RICHARDS IN. CAN I ORDER Q2H MARIANN AUGUSTO WRIGHT Tiffanie [phone]
[2020-06-06] MEDS ORDERED: albuterol 2.5 MG/3 ML nebule NEB PRN (17:05)
[2020-06-06] MEDS: vancomycin/NS 1 GM ADD-VANTAGE 250 ML IV SCH (17:17)
[2020-06-06] MEDS: sodium bicarbonate (8.4%) inj. 100 MEQ in dextrose 5%-water 1,000 ML IV SCH ×2 (17:30→22:51)
[2020-06-06] MEDS ORDERED: dextrose 5%-water 1,000 ML IV SCH (17:55)
[2020-06-06 18:00] VITALS: BP 156/74
[2020-06-06] MEDS ORDERED: sodium bicarbonate (8.4%) inj. 100 MEQ in dextrose 5%-water 1,000 ML IV SCH ×2 (18:10→22:00)
--- NOTE | 2020-06-06 18:30 | NUR ---
Patient in room PCU 3024. I have received report from Matilda ZAMORA and had the opportunity to ask questions and assume patient care.
[2020-06-06] MEDS: ipratropium/albuterol 3ml nebule NEB SCH ×2 (18:57→22:55)
--- NOTE | 2020-06-06 19:30 | NUR ---
Came on to my shift and noted solumedrol at 1635 was never given. Spoke with pharmacy who said they dont see that it has been scanned so I gave the dose of solumedrol 62.5 mg at 1930. CN aware.
[2020-06-06 22:00] VITALS: BP 132/80
[2020-06-07] MEDS: potassium CL 10mEq/100ml bag 100 ML IV PRN ×6 (00:27→07:35)
--- NOTE | 2020-06-07 00:47 | NUR ---
Mistakenly marked the bicarb bag as administered when I came onto my shift there were medications not administered. CN is aware.
[2020-06-07 02:00] VITALS: BP 132/68
[2020-06-07] MEDS: lactulose 20gm/30ml cup PO SCH (02:00)
[2020-06-07] MEDS: ipratropium/albuterol 3ml nebule NEB SCH ×3 (02:39→11:53)
[2020-06-07] MEDS: LORazepam 2 mg/ml vial IV PRN ×2 (04:18→21:11)
[2020-06-07 05:56] LABS: BASOPHILS % (AUTO) 0.1 % (0-1); EOSINOPHILS % (AUTO) 0 % (0-6); HEMATOCRIT 23.2 % (35.0-45.0); HEMOGLOBIN 7.5 g/dl (12.0-16.0); LYMPHOCYTES # (AUTO) 0.3 X10'3 (1.1-4.8); LYMPHOCYTES % (AUTO) 3.1 % (21-51); MEAN CORPUSCULAR HEMOGLOBIN 33.4 PG (27.0-31.0); MEAN CORPUSCULAR HGB CONC 32.6 g/dL (33.0-36.5); MEAN CORPUSCULAR VOLUME 102.6 FL (78-98); MEAN PLATELET VOLUME 8.1 FL (7.4-10.4); MONOCYTES # (AUTO) 0.3 X10'3 (0-0.9); MONOCYTES % (AUTO) 3.4 % (2-12); NEUTROPHILS % (AUTO) 93.4 % (42-75); PLATELET COUNT 152 X10'3 (140-440); RED BLOOD COUNT 2.26 X10'6 (4.20-5.60); RED CELL DISTRIBUTION WIDTH 17.2 % (11.5-14.5); WHITE BLOOD COUNT 8.6 X10'3 (4.5-11.0)
[2020-06-07 05:59] LABS: ALANINE AMINOTRANSFERASE 34 U/L (12-78); ALBUMIN 2.5 G/DL (3.4-5.0); ALBUMIN/GLOBULIN RATIO 0.8 (1.1-1.5); ALKALINE PHOSPHATASE 59 IU/L (46-116); ANION GAP 23 (8-16); ASPARTATE AMINO TRANSFERASE 55 U/L (10-37); BILIRUBIN,TOTAL 0.8 MG/DL (0.1-1.0); BLOOD UREA NITROGEN 24 MG/DL (7-18); BUN/CREATININE RATIO 12.4 (6.6-38.0); CHLORIDE 115 MMOL/L (99-107); CREATININE 1.94 MG/DL (0.40-0.90); GLUCOSE 224 MG/DL (70-104); MAGNESIUM 2.1 MG/DL (1.5-2.4); PHOSPHORUS 2.4 MG/DL (2.3-4.5); POTASSIUM 3.1 MMOL/L (3.5-5.1); TOTAL PROTEIN 5.6 G/DL (6.4-8.2); eGFR 25 ML/MIN
[2020-06-07 06:00] VITALS: BP 142/60
[2020-06-07 06:03] LABS: SODIUM 158 MMOL/L (135-145)
--- NOTE | 2020-06-07 06:30 | NUR ---
Patient in room PCU 3024. I have received report from Inga ZAMORA and had the opportunity to ask questions and assume patient care.
--- NOTE | 2020-06-07 06:33 | NUR ---
Spoke with Dr Spears regarding pts critical lab values, Sodium 158, Ca 6.0. added D5 water at 50cc/hr.
[2020-06-07] MEDS ORDERED: dextrose 5%-water 1,000 ML IV SCH (06:38)
--- NOTE | 2020-06-07 06:41 | NUR ---
Problems reprioritized. Patient report given, questions answered & plan of care reviewed with Aranza ZAMORA.
[2020-06-07] MEDS: heparin, porcine 5000 units/ml vial SQ SCH (07:38)
[2020-06-07] MEDS ORDERED: desmopressin 0.1mg/ml nasal spray 5ml btl NS ONE (08:30)
[2020-06-07] MEDS: piperacillin/tazo 3.375gm/50ml 50 ML IV SCH (09:38)
--- NOTE | 2020-06-07 10:11 | NUR ---
promotional table spacer promotional table spacer Page Sent promotional table spacer PAGER ID: [phone] MESSAGE: [id number] Sheba Pfeiffer. the patient does not have a nicole. She has been thrashing too much for Wicc to work and he skin is red. Her pro BNP is very high and she has Multiple IV fluids running. Can we place a nicole? [phone] Aranza Thank you
[2020-06-07] MEDS ORDERED: LIDOcaine 2% 10ml TOPICAL JELLY (Urojet) TP ONE (10:30)
[2020-06-07 11:00] VITALS: BP 144/64
--- NOTE | 2020-06-07 14:23 | NUR ---
TF consult: Pt failed BSS with ST d/t being unsafe secondary to cognitive level. Pt A/O x 1 and confused per physical assessment. No orders for NG tube placement with TF consult, d/w RN who will d/w . Code status has since been change to palliative/comfort care, unlikely that pt will be receiving TF given change in code status. Will remain available. Addendum: 06/07/20 at [address] Amended: Links added.
[2020-06-07] MEDS ORDERED: VANCOMYCIN LEVEL IV ONE (14:30)
[2020-06-07] MEDS ORDERED: morphine 4 MG/ML inj SYRINge IV PRN (14:30)
--- NOTE | 2020-06-07 14:49 | NUR ---
Parmar Catheter 18 fr placed earlier per protocol. Pt tolerated well.
--- NOTE | 2020-06-07 14:50 | NUR ---
When nicole catheter was being placed it was found that rectal tube was not patent and was coming out. Balloon was not inflated. No output today or last night from it. MD aware it is out.
[2020-06-07] MEDS: morphine 2 MG/ML inj. syringe IV PRN ×2 (15:40→19:38)
[2020-06-07 18:00] VITALS: BP 148/49
--- NOTE | 2020-06-07 18:05 | NUR ---
Patient in room PCU 3024. I have received report from Aranza ZAMORA and had the opportunity to ask questions and assume patient care.
--- NOTE | 2020-06-07 18:43 | NUR ---
Problems reprioritized. Patient report given, questions answered & plan of care reviewed with Randi ZAMORA.
[2020-06-07] MEDS ORDERED: lactobacillus rhamnosus 10,000 MMU CELLS/CAPSULE PO SCH (20:00)
[2020-06-07 22:00] VITALS: BP 118/63
[2020-06-08 02:00] VITALS: BP 144/84
[2020-06-08] MEDS: LORazepam 2 mg/ml vial IV PRN ×3 (03:35→22:01)
[2020-06-08 06:00] VITALS: BP 129/75
--- NOTE | 2020-06-08 06:30 | NUR ---
Patient in room PCU 3024. I have received report from SERA ALONZO and had the opportunity to ask questions and assume patient care.
--- NOTE | 2020-06-08 06:42 | NUR ---
Problems reprioritized. Patient report given, questions answered & plan of care reviewed with KATHRIN RN.
--- NOTE | 2020-06-08 09:27 | NUR ---
RETURNED PHONE CALL TO DAUGHTER CLAUDIA, UPDATED AND ANSWERED ALL QUESTIONS.
--- NOTE | 2020-06-08 11:00 | NUR ---
DISCUSSED CODE STATUS WITH DR. JOSE AND BERNARD MCLEAN RN, RE:ORDERED:PALLIATIVE/COMFORT CARE. DR. JOSE STATES" WILL CHANGE THAT TO DNR/COMFORT CARE".
[2020-06-08] MEDS: morphine 2 MG/ML inj. syringe IV PRN (16:38)
--- NOTE | 2020-06-08 17:50 | NUR ---
PAGER ID: [phone] MESSAGE: DR. JOSE, [id number]/INGRID, CAN WE PLEASE CHANGE CODE STATUS TO DNR/COMFORT CARE? CURRENTLY PALLIATIVE/COMFORT CARE. THANK YOU, KATHRIN [phone].
[2020-06-08 18:00] VITALS: BP 123/68
--- NOTE | 2020-06-08 18:11 | NUR ---
Problems reprioritized. Patient report given, questions answered & plan of care reviewed with SERA ALONZO.
--- NOTE | 2020-06-08 18:32 | NUR ---
Patient in room PCU 3024. I have received report from Erick ZAMORA and had the opportunity to ask questions and assume patient care.
--- NOTE | 2020-06-08 18:53 | NUR ---
Paged Morgan: PAGER ID: [phone] MESSAGE: Pt Kentrell in room 3024A has a code status of Palliative/Comfort Care, please update to say DNR/ Comfort Care. thank you
[2020-06-09] MEDS: morphine 2 MG/ML inj. syringe IV PRN ×2 (00:09→10:01)
[2020-06-09] MEDS: LORazepam 2 mg/ml vial IV PRN (02:24)
[2020-06-09 06:00] VITALS: BP 106/53
--- NOTE | 2020-06-09 06:04 | NUR ---
Problems reprioritized. Patient report given, questions answered & plan of care reviewed with KATHRIN RN.
--- NOTE | 2020-06-09 06:30 | NUR ---
Patient in room PCU 3024. I have received report from SERA ALONZO and had the opportunity to ask questions and assume patient care.
--- NOTE | 2020-06-09 11:38 | NUR ---
ATTEMPT TO CALL REPORT TO YELENA RN 3 SURG. JAZMIN STATES"SHE IS BUSY, WILL CALL YOU BACK MAR"
--- NOTE | 2020-06-09 11:46 | NUR ---
Attempted to call Erick, RN on PCU back to get report on patient. Erick is busy at this time and will call back in a little.
--- NOTE | 2020-06-09 12:05 | NUR ---
Received report from SERA Suarez. Patient will be going to room 352.
--- NOTE | 2020-06-09 12:05 | NUR ---
TELEPHONE REPORT GIVEN TO SERA KIRK
--- NOTE | 2020-06-09 12:30 | NUR ---
TRANSFERRED TO 3 SURG/ROOM 352A VIA BED, PILI ROY.
--- NOTE | 2020-06-09 12:45 | NUR ---
Patient to room 352. On 6L of oxygen. Spoke with Dr. Mora and she stated to d/c the oxygen.
--- NOTE | 2020-06-09 13:08 | NUR ---
Patient is passing. Patient family member (Miguel Angel) called and notified. Awaiting to find out which mortuary to call for patient.
--- NOTE | 2020-06-09 13:28 | NUR ---
RN IS TO DOCUMENT YES TO ALL APPLICABLE AREAS Pronouncement of : 1. Time Physician Notified: 1328 2. Date of : 06/09/2020 3. Time of : 1321 4. DNR/Withdraw life support documented: Y 5. Monitor strip has been placed on chart: Y 6. Assessment process is of one-minute duration and includes following criteria: a) Patient is unresponsive to all stimuli: Y b) Pupils fixed and non-reactive: Y c) Auscultation of precordium reveals absence of heart tones: Y d) Auscultation of lungs reveals absence of breath sounds: Y e) Absence of blood pressure / all vital signs: Y f) QRS complexes are not present on monitor / EKG strip: Y g) Pacer spikes without capture: N/A 4. Comments: Patient family notified
--- NOTE | 2020-06-09 13:28 | NUR ---
PAGER ID: [phone] MESSAGE: SERA Desai [phone] Just FYI patient passed. Thank you
--- NOTE | 2020-06-09 14:45 | NUR ---
Shaunna called and asked if we had the patients social security card or medicare cards. With her permission primary nurse went through patient's belongings and attempted to find these. They were not in the belonging bags. in [place] was called because this is where the patient had come from prior to being admitted to the hospital. After being transferred to several different people a brief message was left for the social problems specialist department about calling [facility] back and asking for SERA Desai. Shaunna was informed of this and was told that she would be kept informed. She was also informed that the four rings her mother is wearing were not able to be pulled off. She stated that this was okay. Tejas and Yolanda will be informed of this as well.
--- NOTE | 2020-06-09 16:41 | NUR ---
Tejas and Yolanda here to crop picker patient. Paperwork signed and a copy was placed in the chart. Daughter Shaunna informed of patient leaving.
== END 2020-06-09 16:31 | disposition expired | DRG 917 ==
LOC: ER 08:04 → ED HOLD 14:06 → PCU 3S 17:15 → SUR 3N 06-09 12:38
PROVIDERS: ADMIT Family Medicine; ATTEND Family Medicine
DX: T43.211A Poisoning by selective serotonin and norepinephrine reuptake inhibitors, accidental (unintentional), initial encounter (principal); A41.9 Sepsis, unspecified organism; J69.0 Pneumonitis due to inhalation of food and vomit; G92 Toxic encephalopathy; J96.00 Acute respiratory failure, unspecified whether with hypoxia or hypercapnia; E87.0 Hyperosmolality and hypernatremia; E87.4 Mixed disorder of acid-base balance; N17.9 Acute kidney failure, unspecified; Z20.828 Contact with and (suspected) exposure to other viral communicable diseases; D64.9 Anemia, unspecified; Z66 Do not resuscitate; E86.9 Volume depletion, unspecified; E87.6 Hypokalemia; N18.3 Chronic kidney disease, stage 3 (moderate); G89.29 Other chronic pain; M10.9 Gout, unspecified; Z51.5 Encounter for palliative care; Z87.891 Personal history of nicotine dependence; Z88.8 Allergy status to other drugs, medicaments and biological substances; Z79.899 Other long term (current) drug therapy; Y92.89 Other specified places as the place of occurrence of the external cause
CPT/HCPCS: 36415; 36600; 70450; 71045; 80053; 80305; 80320; 80329; 81001; 82140; 82803; 82948; 83605; 83735; 83880; 84100; 84132; 84145; 84484; 85018; 85025; 85610; 85730; 87040; 87081; 92508; 92616; 93005; 93306; 94640; 94760; 96365; 96367; 96375; 97112; 97161; 97530; 99291; G0378; J0696; J1200; J1630; J1644; J2060; J2270; J2543; J2930; J3370; J3480; J3490; J7070